=== PATIENT | male | born 1955 | race Caucasian/White ===

== ENCOUNTER → 2019-11-24 | Outpatient (CLI) | payer OTHER ==
[~2019-11-24] MED LIST: ASPIR 8181 MG PO; FISH OIL 1,001000 M2 PO; HYDROCHLOROTHIA25 M2 PO; MONOPRIL20 MG PO; NORVASC 5 MG TAB5 MG; NORVASC5 MG PO; PERCOCET 5-3251 EACH PO; TOPROL XL100 MG PO; XARELTO10 MG PO
== END ==
LOC: LAB 11:14
PROVIDERS: ATTEND Family Medicine
DX: U07.1 COVID-19 (principal)

== ENCOUNTER → 2020-10-02 | Outpatient (CLI) | payer OTHER ==
[~2020-10-02] MED LIST changes: +BACTRIM DS TAB1 EACH PO; +HYDROCODON-ACE1 EAC7 PO; +KEFLEX500 M1 PO; +NORCO 5-325 TA1 EAC2 PO; +PREDNISONE 20 M20 M1 PO
[2020-10-02 10:55] VITALS: BP 123/70
[2020-10-02 11:20] LABS: HEMATOCRIT 52.3 % (42.0-52.0); HEMOGLOBIN 16.7 gm/dL (14.0-18.0)
--- NOTE | 2020-10-02 12:14 | NUR ---
ARRIVED TO CLINIC AMBULATORY. HISTORY OBTAINED. PATIENT STATES HE HAS NEVER HAD ANY PROBLEMS WITH PHLEBOTOMIES IN THE PAST. PATIENT TO BRING UPDATED MED LIST AT NEXT VISIT. LAB ALLISON H&H WITH HGB 16.7 AND HCT 52.3. THERAPEUTIC PHLEBOTOMY DONE WITHOUT ADVERSE REACTION. HEMOSTASIS OBTAINED. PRESSURE DRESSING PLACED. PATIENT DRANK FLUIDS AND TOLD TO FORCE FLUIDS THE REST OF THE DAY. H&H RESULTS FAXED TO DR. PAGAN'S OFFICE. [facility]. POST PHLEBOTMY INSTRUCTIONS PRINTED AND GIVEN TO PATIENT. NEXT APPOINTMENT SCHEDULED ON 10/31. PATIENT VOICED NO QUESTIONS OR CONCERNS.
== END ==
LOC: OPONC 10:19
PROVIDERS: ATTEND Internal Medicine Hematology & Oncology
DX: D45 Polycythemia vera (principal)
CPT/HCPCS: 95100

== ENCOUNTER → 2020-10-31 | Outpatient (CLI) | payer OTHER ==
[~2020-10-31] MED LIST changes: +ALLOPURINOL 10100 M3 PO; +ARTHRITIS PAIN650 M2 PO; +COLCHICINE0.6 M1 PO; +HYDREA 500 MG500 M1 PO; +HYDROXYZINE HCL10 M2 PO; +HYDROXYZINE HCL25 M2 PO; +ONE DAILY FOR1 EACH PO; +ULORIC40 MG PO; -XARELTO10 MG PO; +XARELTO20 MG
[2020-10-31 10:15] VITALS: BP 142/62
[2020-10-31 10:25] LABS: HEMATOCRIT 45.6 % (42.0-52.0)
--- NOTE | 2020-10-31 10:45 | NUR ---
HERE FOR Q2W THERAPEUTIC PHLEBOTOMY. WAS HERE ON 10/02 AND DONATED AT THE [facility] [place] ON 10/17. H&H DONE PRIOR, PT BARELY MEETS PARAMETERS TO DRAW A UNIT OF BLOOD OFF. STATES HIS HYDROXYUREA DOSE WAS JUST INCREASED AND IS HOPEFUL THIS WILL ALLOW HIM TO NEED LESS FREQUENT PHLEBOTOMIES. CALLED DR. PAGAN WHO OK'D HOLDING TODAY'S PHLEBOTOMY. PT SCHEDULED TO SEE DR. PAGAN ON 11/17 FOR EVALUATION POST DOSE INCREASE. PT WILL PLAN TO GO TO [facility] WHERE HE HAS A STANDING ORDER FOT AN H&H (WILL GO ON 11/14). PT WILL CALL US IF HE NEEDS THE PHLEBOTOMY. WE WILL AWAIT FURTHER DIRECTION POST VISIT WITH DR. SPEARS. DISMISSED IN STABLE CONDITION.
== END ==
LOC: OPONC 09:55
PROVIDERS: ATTEND Internal Medicine Hematology & Oncology
DX: D45 Polycythemia vera (principal)
CPT/HCPCS: 91016

== ENCOUNTER → 2020-11-17 | Outpatient (CLI) | payer OTHER ==
[2020-11-17 14:14] VITALS: BP 103/61
--- NOTE | 2020-11-17 14:19 | NUR ---
RECEVIED CALL FROM PATIENT REQUESTING THERAPEUTIC PHLEBOTOMY TODAY. STATES HE HAD H&H EARLIER THIS WEEK AND THAT DR. PAGAN WOULD LIKE ONE UNIT REMOVED. CALLED OFFICE TO VERIFY AND LABS WERE FAXED TO THIS RN. HGB 14.9 HCT 46.2. ONE UNIT OF BLOOD REMOVED PER PROTOCOL. TOLERATED PROCEDURE WELL. PATIENT TO SEE DR. PAGAN IN TWO WEEKS AND ALSO WILL GET BLOOD CHECKED IN TWO WEEKS. HEMOSTASIS OBTAINED AT INSERTION SITE. [facility] IN STABLE CONDITION.
== END ==
LOC: OPONC 13:05
PROVIDERS: ATTEND Internal Medicine Hematology & Oncology
DX: D45 Polycythemia vera (principal)
CPT/HCPCS: 95100

== ENCOUNTER → 2021-01-19 | Outpatient (CLI) | payer OTHER ==
[~2021-01-19] MED LIST changes: +DOXYCYCLINE 10100 MG PO; +ENDOCET 7.5-321 EACH PO
[2021-01-19 12:25] LABS: ABSOLUTE NEUTROPHILS 5.6 thou/uL (1.4-8.2); BASOPHILS 0.3 % (0.0-2.0); EOSINOPHILS 1.4 % (0.0-3.0); HEMATOCRIT 43.1 % (42.0-52.0); HEMOGLOBIN 14.6 gm/dL (14.0-18.0); LYMPHOCYTES 9.2 % (24.0-44.0); MCH 39.9 pg (26.0-34.0); MCHC 33.9 g/dL (28.0-37.0); MCV 117.6 fL (80.0-100.0); MONOCYTES 9.9 % (1.0-8.0); PLATELET COUNT 116 thou/uL (150-400); POLYS 79.2 % (36.0-66.0); RBC 3.67 mil/uL (4.50-6.00); RDW 23.3 % (10.5-14.5); WBC 7.1 thou/uL (4.0-11.0)
[2021-01-19 12:26] LABS: ALBUMIN 3.8 g/dL (3.4-5.0); CALCIUM 8.8 mg/dL (8.5-10.1); CREATININE 1.7 mg/dL (0.7-1.3); POTASSIUM 3.9 mmol/L (3.5-5.1); TOTAL PROTEIN 8.1 g/dL (6.4-8.2)
[2021-01-19 14:00] LABS: ANISOCYTOSIS 3+; MACROCYTES 2+
== END ==
LOC: LAB 10:46
PROVIDERS: ATTEND Family Medicine
DX: I10 Essential (primary) hypertension (principal); M10.9 Gout, unspecified; R73.9 Hyperglycemia, unspecified

== ENCOUNTER → 2021-02-21 | Outpatient (CLI) | payer OTHER ==
[~2021-02-21] MED LIST changes: +PERCOCET 7.5-31 EACH PO
[2021-02-21 14:45] LABS: HEMOGLOBIN 14.7 gm/dL (14.0-18.0)
[2021-02-21 16:58] LABS: ALBUMIN 3.2 g/dL (3.4-5.0); CALCIUM 8.9 mg/dL (8.5-10.1); POTASSIUM 4.4 mmol/L (3.5-5.1); TOTAL BILIRUBIN 0.7 mg/dL (0.2-1.0); URIC ACID* 11.4 mg/dL (3.5-7.2)
--- NOTE | 2021-02-21 17:53 | NUR ---
PT ARRIVED AROUND 1330, NO APPOINTMENT. THOUGHT IT WAS OK TO POP IN TO HAVE LABS DRAWN LIKE HE DOES AT [facility]. NEEDING PRE-PHLEBOTOMY LABS DRAWN TO SEE IF MEETS PARAMATERS. ALSO STATED HIS PCP, DR. KEARNEY, WAS WANTING LABS DRAWN. CALLED DR. KEARNEY'S OFFICE TO OBTAIN THAT ORDER. LABS DRAWN PERIPHERALLY BY NURSE. PT DID NOT MEET PARAMETERS TO REQUIRE THERAPEUTIC PHLEBOTOMY SO DISMISSED. STATES WILL CALL WHEN READY TO RETURN FOR NEXT CHECK.
== END ==
LOC: OPONC 14:24
PROVIDERS: Specialist; ATTEND Internal Medicine Hematology & Oncology
DX: D45 Polycythemia vera (principal)
CPT/HCPCS: 95116

== ENCOUNTER → 2021-04-16 | Outpatient (CLI) | payer BC | LOC: HYPER 10:06 | PROVIDERS: ATTEND Emergency Medicine | DX: L97.322 Non-pressure chronic ulcer of left ankle with fat layer exposed (principal); L97.812 Non-pressure chronic ulcer of other part of right lower leg with fat layer exposed; L97.822 Non-pressure chronic ulcer of other part of left lower leg with fat layer exposed; I87.2 Venous insufficiency (chronic) (peripheral); G60.3 Idiopathic progressive neuropathy; R60.0 Localized edema; D45 Polycythemia vera; I48.0 Paroxysmal atrial fibrillation; I10 Essential (primary) hypertension; E66.8 Other obesity; Z68.35 Body mass index [BMI] 35.0-35.9, adult; Z79.01 Long term (current) use of anticoagulants; Z79.899 Other long term (current) drug therapy ==

== ENCOUNTER → 2021-05-31 | Outpatient (CLI) | payer BC ==
[2021-05-31 13:37] LABS: HEMATOCRIT 42.1 % (42.0-52.0); HEMOGLOBIN 12.7 gm/dL (14.0-18.0)
--- NOTE | 2021-05-31 13:45 | NUR ---
HERE FOR LABS AND POSSIBLE THERAPEUTIC PHLEBOTOMY. H&H DRAWN, HGB 12.7, HCT 42.1. PT DID NOT MEET PARAMETERS FOR PHLEBOTOMY SO HELD. PT POST THROMBECTOMY LEFT LOWER LEG LAST WEEK. SEEMS PRETTY WEAK. HAS LOST WEIGHT. WALKING WITH A CANE. HAS HOME HEALTH NURSING. HAS F/U APPT WITH DR. COREAS NEXT WEEK. ENCOURAGED PT TO ASK ABOUT GETTING EVAL FOR HOME PHYSICAL THERAPY AND TO CONTINUE TO MONITOR AREA OF REDNESS, TENDERNESS FROM EITHER PERIPHERAL IV STICK OR POSSIBLY AN ARTERIAL LINE IN HIS LEFT WRIST. STATES THE NURSES ARE WATCHING THIS AND IT IS SHOWING SOME IMPROVMENT. PROVIDED PT WITH INFORMATION ON FILLING OUT AN ADVANCE DIRECTIVE. PT IS THINKING ABOUT SWITCHING HEMATOLOGISTS TO ONE WHO IS CLOSER TO HOME AND MORE CONVENIENT. HE PLANS TO DISCUSS THIS WITH DR. KEARNEY. PT IS ALSO DEALING WITH SOME NON-HEALING WOUNDS TO HIS BILAT ANKLES--STATES IS MANAGING THOSE. PT DIMISSED IN STABLE CONDITION WITH HIS . WILL CALL IF HE NEEDS TO RESCHEDULE WITH US IN THE FUTURE.
== END ==
LOC: OPONC 12:49
PROVIDERS: ATTEND Internal Medicine Hematology & Oncology
DX: D45 Polycythemia vera (principal)
CPT/HCPCS: 95116